=== PATIENT | female | born 2000 | race Caucasian/White ===

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

== ENCOUNTER 2023-05-14 23:02 | Emergency (ER) | payer OTHER ==
[~2023-05-14] VITALS: Ht 160 cm; Wt 90.7 kg
[~2023-05-14 23:02] MED LIST changes: +ALMACONE SUSPE355 ML PO; +FAMO20 PO
[2023-05-14 23:30] VITALS: BP 143/91
== END 2023-05-14 23:39 | disposition home or self-care (01) ==
LOC: ER 23:02
DX: Z03.823 Encounter for observation for suspected inserted (injected) foreign body ruled out (principal); Z79.899 Other long term (current) drug therapy
CPT/HCPCS: 99282